=== PATIENT | female | born 1990 | race Caucasian/White ===

== ENCOUNTER 2016-08-08 21:22 | Emergency (ER) | payer BC ==
[2016-08-08] MEDS: NS 1,000 ML IV SCH ×2 (21:30→22:37)
[2016-08-08] MEDS ORDERED: SODIUM CHLORIDE 0.9% 3 ML FLUSH FLUSH PRN (21:30)
--- NOTE | 2016-08-08 21:35 | EDPRACDOC ---
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 STATES SHE TOOK THIS MEDICATION IN 2014 FOR WEIGHT LOSS AND DIDNT HAVE ANY PROBLEMS THEN. PER EMS THEY GAVE HER ADENOSINE 6, 12,12 WITHOUT CHANGE OF HEART RATE. PT STATES SHE FEELS SHAKY INSIDE. Symptoms Started: Reports: Suddenly, Drug-ingestion (ADIPEX FOR WEIGHT LOSS) Relevant History: Reports: None Heart Rate (bpm): 230 (INITIALLY WHEN EMS ARRIVED) Pulse is: Rapid Defibrillator Firing: No Worsens with: Reports: Nothing Associated signs & symptoms: Reports: Other (MILD SOB) Chest Pain Location: Reports: No Pain Pain Quality: Reports: None Pain Radiation: Reports: None <Javier Alfaro - Last Filed: 08/09/16 01:46> <Kenia Awan - Last Filed: 08/09/16 05:47> - General Information Stated Complaint: HEART PROBLEMS Time Seen by Provider: 08/08/16 21:27 Home Medications: Home Medications Aspirin (Enteric Coated) [Ecotrin] 162 mg PO .TODAY PRN 08/08/16 Phentermine HCl 15 mg PO DAILY 08/08/16 Ranitidine HCl [Zantac] 150 mg PO DAILY 08/08/16 Metoprolol Tartrate 25 mg PO BID #6 tablet 08/09/16 Allergies/Adverse Reactions: Allergies Allergy/AdvReac Type Severity Reaction Status Date / Time shellfish derived Allergy Anaphylaxis Verified 08/08/16 22:02 * ED Past Medical History - History Reviewed Yes Nurses notes reviewed and agree except as marked Travel Outside of [place] in the Last 3 Months?: No No Past Medical History: Yes Patient has no past medical history - Family Medical History Reports: Other (IRREGULAR HEART RATE - MOTHER) - Social Medical History ETOH: None Substance Abuse: None Lives With: Other Lives In: Home <Javier Alfaro - Last Filed: 08/09/16 01:46> EDM Review of Systems - Review of Systems ROS Negative Except as Marked: Yes All systems reviewed and were negative except as marked Constitutional: No Symptoms Reported. negative: Fever, Chills, Weakness, Fatigue, Loss of Appetite Eyes: No Symptoms Reported. negative: Redness, Blurred Vision, Double Vision, Discharge, Pain, Light Sensitive, Photophobia Ears: No Symptoms Reported. negative: Pain, Hearing Loss, Drainage, Ear Pulling Throat: No Symptoms Reported. negative: Pain, Swelling Nose: No Symptoms Reported. negative: Congestion, Bleeding, Discharge, Injection, Swelling, Deformity, Ecchymosis, Tender, Abrasion, Laceration Mouth: No Symptoms Reported. negative: Pain, Drooling Respiratory: Shortness of Breath. negative: Barky Cough, Brassy Cough, Cough, Hemoptysis, Wheezing Cardiovascular: Palpitations. negative: Chest Pain, Cyanosis, Edema, Orthopnea , PND, Syncope, Skin Mottling Gastrointestinal: No Symptoms Reported. negative: Pain, Constipation, Nausea, Vomiting, Diarrhea, Melena, Formula Intolerance Genitourinary: No Symptoms Reported. negative: Dysuria, Hematuria, Frequency, Discharge, Bleeding, Testicular Pain, Neurological: Weakness. negative: Dizziness, Gait Difficulty, Headache, Numbness, Seizure, Speech Difficulty Musculoskeletal: No Symptoms Reported. negative: Neck, Chestwall, Ribs, Back, Shoulder, Arm, Elbow, Forearm, Wrist, Hand, Pelvis, Hip, Femur, Knee, Leg, Ankle , Foot Integumentary: No Symptoms Reported. negative: Itching, Rash, Bruising, Wound Allergic/Immunologic: No Symptoms Reported. negative: Hives, Itching Hematologic: No Symptoms Reported. negative: Lymphadenopathy, Easy Bruising, Easy Bleeding Endocrine: No Symptoms Reported. negative: Weight Gain, Weight Loss Psychiatric: No Symptoms Reported. negative: Anxiety, Depression, Hallucinations, Insomnia, Suicidal <Javier Alfaro - Last Filed: 08/09/16 01:46> - Physical Exam Constitutional: Alert (Awake), Other (ANXIOUS) Oriented to: Time, Person, Place Last recorded Vital Signs: Oxygen Pulse Oxygen Saturation O2 Device Oxygen Flow Rate Fraction of Inspired Oxygen ( FIO2) - HEENT Head: Normal ( normocephalic) Eye Exam: Normal (PERRL, EOMI, Sclera white) Oropharynx: Normal (Pharynx:Moist without exudate,Gums-no swelling) Tympanic Membrane: Normal ENT EAC: Normal TMJ: Normal Nose: No Symptoms Reported (septum midline) Neck: Normal (FROM, trachea at midline) - Respiratory/Cardiovascular Respiratory: Normal - CTA (BBS clear to auscultation without adventitious sounds ) Cardiovascular: Tachycardia - GI Auscultation: Normal (NABS) Palpation: Normal (Soft,No rebound or guarding, non distended) Tenderness: Non tender Pearson's Sign: Negative - Bladder: Normal - Musculoskeletal Back: Normal (Non-Tender) Extremities: Normal (Normal tone, Pulses 2+ No cyanosis or edema, FROM) - Integumentary Skin: Normal, Warm, Dry Lymphatics: Normal (no adenopathy) - Neurologic Memory Impaired: Normal Motor Function: Normal (Normal tone, Pulses 2+ No cyanosis or edema, FROM) Cranial Nerve: Normal (CN II-X11 intact sensation, strength 5/5) Cerebellar: Normal Mood Description: Normal Perception: Normal <Javier Alfaro - Last Filed: 08/09/16 01:46> - Physical Exam Last recorded Vital Signs: Last Vital Signs Temp Pulse 90 08/09/16 02:45 Resp 18 08/09/16 01:36 BP 112/66 08/09/16 02:45 Pulse Ox 92 08/09/16 02:45 Oxygen Pulse Oxygen Saturation 92 O2 Device Room Air Oxygen Flow Rate Fraction of Inspired Oxygen ( FIO2) <Kenia Awan - Last Filed: 08/09/16 05:47> - Differential Diagnosis PSVT, Sinus tachycardia, WPW, Anxiety/Panic attack, Electrolyte disorder, Hyperthyroidism - Re-evaluation Re-evaluation 1 Re-evaluation Time: 00:10 (HEART RATE STILL ELEVATED PT STATES FEELING BETTER. ) Re-evaluation 2 Re-evaluation Time: 01:47 (HEART RATE 144 BEFORE THE SECOND DOSE OF CARDIZEM, 5 MINTUES AFTER SECOND BOLUS HEART RATE BOUNCING BETWEEN 86-104 STILL APPEARS TO BE IN AFIB. ) - Results 08/08/16 21:30 08/08/16 21:30 - EKG EKG #1 Initial EKG Time: 21:28 -: Yes EKG interpreted by me Rate: bpm: 191 [place]: Normal Rhythm: Other (SVT) Block: None Hypertrophy: None ST: Normal EKG #2 Initial EKG Time: 22:54 -: Yes EKG interpreted by Rate: bpm: 121 [place]: Normal Rhythm: Afib (WITH RVR) Block: None Hypertrophy: None ST: Normal Comments: AFTER LOPRESSOR 5MG EVERY 5 MINUTES - Diagnostic Imaging CXR Image interpreted by: Radiologist IMPRESSION: No active disease. <Javier Alfaro - Last Filed: 08/09/16 01:46> - Re-evaluation Re-evaluation 4 Re-evaluation Time: 05:44 (NO SYMPTOMS, HR 92 NSR) - Results 08/08/16 21:30 08/08/16 21:30 WBC 10.6 xk/uL (3.8-10.8) 08/08/16 21:30 RBC 4.91 xM/uL (4.20-5.40) 08/08/16 21:30 Hgb 14.3 g/dL (12.0-16.0) 08/08/16 21:30 Hct 40.9 % (36-47) 08/08/16 21: MCV 83 fL (81-99) 08/08/16 21: MCH 29.2 pg (27-32) 08/08/16 21: MCHC 35.0 g/dl (33-36) 08/08/16 21:30 RDW 12.9 % (11.5-14.5) 08/08/16 21: Plt Count 265 xk/uL (130-400) 08/08/16 21:30 MPV 9.4 fL (7.4-10.4) 08/08/16 21:30 Neut % (Auto) 48.2 % (45-76) 08/08/16 21: Lymph % (Auto) 43.3 % (17-44) 08/08/16 21:30 Citrus % (Auto) 6.6 % (3-10) 08/08/16 21:30 Eos % (Auto) 0.9 % (0-5) 08/08/16: Baso % (Auto) 1.0 % (0-2) 08/08/16 21:30 Absolute Neuts (auto) 5.09 xk/uL (1.7-8.2) 08/08/16: Absolute Lymphs (auto) 4.56 xk/uL (0.65-4.75) 08/08/16 21:30 PT 11.8 SEC (9.2-11.2) H 08/08/16 21:30 INR 1.1 08/08/16 21:30 D-Dimer Quant (PE/DVT) 340 ng/mL (<500) 08/08/16 21:30 Sodium 139 mEq/L (137-146) 08/08/16 21:30 Potassium 3.0 mEq/L (3.5-5.1) L 08/08/16 21:30 Chloride 103 mEq/L (98-107) 08/08/16 21:30 Carbon Dioxide 18 mMOL/L (22-33) L 08/08/16 21:30 Anion Gap 21 mEq/L (8-16) H 08/08/16 21:30 BUN 12 MG/DL (7-17) 08/08/16 21:30 Creatinine 0.70 MG/DL (0.52-1.04) 08/08/16 21:30 Estimated GFR (MDRD) > 60 mL/min (>=60) 08/08/16 21:30 Glucose 117 MG/DL (70-99) H 08/08/16 21:30 Calculated Osmolality 269 MOs/Kg (270-290) L 08/08/16 21:30 Calcium 9.6 MG/DL (8.4-10.2) 08/08/16 21:30 Total Bilirubin 0.7 MG/DL (0.2-1.3) 08/08/16 21:30 AST 31 IU/L (14-36) 08/08/16 21:30 ALT 41 IU/L (9-52) 08/08/16 21:30 Alkaline Phosphatase 64 IU/L (38-126) 08/08/16 21:30 Creatine Kinase 317 IU/L (30-134) H 08/08/16 21:30 CK-MB (CK-2) 0.4 ng/mL (0-4.5) 08/08/16:30 Myoglobin 27.1 ng/mL (0-101) 08/08/16 21:30 Troponin I < 0.01 ng/mL (<.04) 08/08/16 21:30 Total Protein 7.6 G/DL (6.3-8.2) 08/08/16 21:30 Albumin 4.6 G/DL (3.5-5.0) 08/08/16 21:30 TSH 2.27 uIU/mL (0.5-4.67) 08/08/16 21:30 Urine Color Pale yellow 08/08/16 22:10 Urine Clarity Sl cldy 08/08/16 22:10 Urine pH 6.0 (5.0-8.0) 08/08/16 22:10 Ur Specific [place] 1.005 (1.003-1.035) 08/08/16 22:10 Urine Protein Neg (NEG/TRACE) 08/08/16 22:10 Urine Glucose (UA) Neg (NEGATIVE) 08/08/16 22:10 Urine Ketones 2+ (NEGATIVE) H 08/08/16 22:10 Urine Occult Blood Neg (NEG/TRACE) 08/08/16 22:10 Urine Nitrite Neg (NEGATIVE) 08/08/16 22:10 Urine Bilirubin Neg (NEGATIVE) 08/08/16 22:10 Urine Urobilinogen <2.0 MG/DL (0-1) 08/08/16 22:10 Ur Leukocyte Esterase Trace (NEGATIVE) H 08/08/16 22:10 Urine RBC 0-2 (0-5) 08/08/16 22:10 Urine WBC 5-10 (0-5) H 08/08/16 22:10 Ur Epithelial Cells 2+ 08/08/16 22:10 Urine Bacteria Few (NEG/FEW) 08/08/16 22:10 Urine Mucus Occ (NEG/OCC) 08/08/16 22:10 Urine Test Neg (NEGATIVE) 08/08/16 22:10 Urine Opiates Screen Neg (NEGATIVE) 08/08/16 22:10 Ur Oxycodone Screen Neg (NEGATIVE) 08/08/16 22:10 Urine Methadone Screen Neg (NEGATIVE) 08/08/16 22:10 Ur Barbiturates Screen Neg (NEGATIVE) 08/08/16 22:10 Ur Tricyclics Screen Neg (NEGATIVE) 08/08/16 22:10 Ur Phencyclidine Scrn Neg (NEGATIVE) 08/08/16 22:10 Ur Amphetamines Screen Neg (NEGATIVE) 08/08/16 22:10 U Methamphetamines Scrn Neg (NEGATIVE) 08/08/16 22:10 Urine MDMA Screen Neg (NEGATIVE) 08/08/16 22:10 U Benzodiazepines Scrn Neg (NEGATIVE) 08/08/16 22:10 Urine Cocaine Screen Neg (NEGATIVE) 08/08/16 22:10 Ur THC Screen Neg (NEGATIVE) 08/08/16 22:10 Lab Results 01/11/17 01/11/17 01/11/17 22:10 22:10 22:10 WBC RBC Hgb Hct MCV MCH MCHC RDW Plt Count MPV Neut % (Auto) Lymph % (Auto) [place] % (Auto) Eos % (Auto) Baso % (Auto) Absolute Neuts (auto) Absolute Lymphs (auto) PT INR D-Dimer Quant (PE/DVT) Sodium Potassium Chloride Carbon Dioxide Anion Gap BUN Creatinine Estimated GFR (MDRD) Glucose Calculated Osmolality Calcium Total Bilirubin AST ALT Alkaline Phosphatase Creatine Kinase CK-MB (CK-2) Myoglobin Troponin I Total Protein Albumin TSH Urine Color Pale yellow Urine Clarity Sl cldy Urine pH 6.0 Ur Specific [place] 1.005 Urine Protein Neg Urine Glucose (UA) Neg Urine Ketones 2+ H Urine Occult Blood Neg Urine Nitrite Neg Urine Bilirubin Neg Urine Urobilinogen <2.0 Ur Leukocyte Esterase Trace H Urine RBC 0-2 Urine WBC 5-10 H Ur Epithelial Cells 2+ Urine Bacteria Few Urine Mucus Occ Urine Test Neg Urine Opiates Screen Neg Ur Oxycodone Screen Neg Urine Methadone Screen Neg Ur Barbiturates Screen Neg Ur Tricyclics Screen Neg Ur Phencyclidine Scrn Neg Ur Amphetamines Screen Neg U Methamphetamines Scrn Neg Urine MDMA Screen Neg U Benzodiazepines Scrn Neg Urine Cocaine Screen Neg Ur THC Screen Neg 08/08/16 08/08/16 08/08/16 21:30 21:30 21:30 WBC 10.6 RBC 4.91 Hgb 14.3 Hct 40.9 MCV 83 MCH 29.2 MCHC 35.0 RDW 12.9 Plt Count 265 MPV 9.4 Neut % (Auto) 48.2 Lymph % (Auto) 43.3 [place] % (Auto) 6.6 Eos % (Auto) 0.9 Baso % (Auto) 1.0 Absolute Neuts (auto) 5.09 Absolute Lymphs (auto) 4.56 PT 11.8 H INR 1.1 D-Dimer Quant (PE/DVT) 340 Sodium Potassium Chloride Carbon Dioxide Anion Gap BUN Creatinine Estimated GFR (MDRD) Glucose Calculated Osmolality Calcium Total Bilirubin AST ALT Alkaline Phosphatase Creatine Kinase CK-MB (CK-2) Myoglobin Troponin I Total Protein Albumin TSH Urine Color Urine Clarity Urine pH Ur Specific [place] Urine Protein Urine Glucose (UA) Urine Ketones Urine Occult Blood Urine Nitrite Urine Bilirubin Urine Urobilinogen Ur Leukocyte Esterase Urine RBC Urine WBC Ur Epithelial Cells Urine Bacteria Urine Mucus Urine Test Urine Opiates Screen Ur Oxycodone Screen Urine Methadone Screen Ur Barbiturates Screen Ur Tricyclics Screen Ur Phencyclidine Scrn Ur Amphetamines Screen U Methamphetamines Scrn Urine MDMA Screen U Benzodiazepines Scrn Urine Cocaine Screen Ur THC Screen 08/08/16 21:30 WBC RBC Hgb Hct MCV MCH MCHC RDW Plt Count MPV Neut % (Auto) Lymph % (Auto) [place] % (Auto) Eos % (Auto) Baso % (Auto) Absolute Neuts (auto) Absolute Lymphs (auto) PT INR D-Dimer Quant (PE/DVT) Sodium 139 Potassium 3.0 L Chloride 103 Carbon Dioxide 18 L Anion Gap 21 H BUN 12 Creatinine 0.70 Estimated GFR (MDRD) > 60 Glucose 117 H Calculated Osmolality 269 L Calcium 9.6 Total Bilirubin 0.7 AST 31 ALT 41 Alkaline Phosphatase 64 Creatine Kinase 317 H CK-MB (CK-2) 0.4 Myoglobin 27.1 Troponin I < 0.01 Total Protein 7.6 Albumin 4.6 TSH 2.27 Urine Color Urine Clarity Urine pH Ur Specific [place] Urine Protein Urine Glucose (UA) Urine Ketones Urine Occult Blood Urine Nitrite Urine Bilirubin Urine Urobilinogen Ur Leukocyte Esterase Urine RBC Urine WBC Ur Epithelial Cells Urine Bacteria Urine Mucus Urine Test Urine Opiates Screen Ur Oxycodone Screen Urine Methadone Screen Ur Barbiturates Screen Ur Tricyclics Screen Ur Phencyclidine Scrn Ur Amphetamines Screen U Methamphetamines Scrn Urine MDMA Screen U Benzodiazepines Scrn Urine Cocaine Screen Ur THC Screen <Kenia Awan N - Last Filed: 08/09/16 05:47> - Departure Education/Counseling Given To: Patient Education/Counseling Given Regarding: Diagnosis, Treatment, Prognosis, Follow Up <Javier Alfaro - Last Filed: 08/09/16 01:46> - Departure Disposition: Home <Kenia Awan - Last Filed: 08/09/16 05:47> - Departure Condition: Stable Final Diagnosis: Supraventricular tachycardia, Adverse drug reaction, Atrial fibrillation with rapid ventricular response Instructions: Supraventricular Tachycardia (ED), Adverse Drug Reaction (ED), Atrial Fibrillation (ED) Referrals: None,No Provider [NonStaff] - One Week Prescriptions: Metoprolol Tartrate 25 mg PO BID #6 tablet Forms: ED Discharge Instructions
[2016-08-08] MEDS ORDERED: METOPROLOL 5 MG/5 ML SDV IV STA (21:36)
[2016-08-08 21:38] LABS: AUTOMATED EOSINOPHIL 0.9 % (0-5); AUTOMATED LYMPH 43.3 % (17-44); AUTOMATED MONOCYTE 6.6 % (3-10); AUTOMATED NEUTROPHIL 48.2 % (45-76); MPV 9.4 fL (7.4-10.4)
[2016-08-08 21:39] VITALS: BMI 32.8
[2016-08-08] MEDS: METOPROLOL 5 MG/5 ML SDV IV ONE ×2 (21:44→21:49)
[2016-08-08 21:48] LABS: PT-INR 1.1
[2016-08-08 21:54] LABS: BLOOD UREA NITROGEN 12 MG/DL (7-17); CALCIUM 9.6 MG/DL (8.4-10.2); CALCULATED OSMOLALITY 269 MOs/Kg (270-290); CHLORIDE 103 mEq/L (98-107); CPK TOTAL WITH POSSIBLE MB 317 IU/L (30-134); GLUCOSE 117 MG/DL (70-99); SODIUM LEVEL 139 mEq/L (137-146); TOTAL PROTEIN 7.6 G/DL (6.3-8.2)
[2016-08-08] MEDS ORDERED: METOPROLOL 5 MG/5 ML SDV IV SCH (22:00)
[2016-08-08 22:10] LABS: CPKMB 0.4 ng/mL (0-4.5)
[2016-08-08 22:24] LABS: ALL NEG? YES; MDMA* NEG (NEGATIVE); METHAMPHETAMINES NEG (NEGATIVE); OXYCODONE NEG (NEGATIVE)
[2016-08-08 22:25] LABS: hTSH 2.27 uIU/mL (0.5-4.67)
[2016-08-08] MEDS ORDERED: LORAZEPAM 2 MG/ML VIAL IV ONE (22:26)
[2016-08-08 22:31] LABS: LEUKOCYTES/URINE TRACE (NEGATIVE); NITRITE/URINE NEG (NEGATIVE); RBC/URINE 0-2 (0-5); URINE OCCULT BLOOD NEG (NEG/TRACE)
[2016-08-08] MEDS ORDERED: DILTIAZEM 25 MG/5 ML VIAL IV ONE (22:59)
--- NOTE | 2016-08-08 23:26 | DIRPT ---
CLINICAL DATA: Initial evaluation for suspected respiratory distress. EXAM: PORTABLE CHEST 1 VIEW COMPARISON: None. FINDINGS: The cardiac and mediastinal silhouettes are within normal limits. The lungs are normally inflated. No airspace consolidation, pleural effusion, or pulmonary edema is identified. There is no pneumothorax. No acute osseous abnormality identified. IMPRESSION: No active disease. Electronically Signed By: Ignacio Salinas M.D. On: 08/08/2016 23:24
[2016-08-08] MEDS ORDERED: POTASSIUM CHLORIDE 10 MEQ TABLET PO ONE (23:30)
[2016-08-08] MEDS: NS 1,000 ML IV ONE (23:32)
[2016-08-08] MEDS ORDERED: POTASSIUM CHLORIDE 20 MEQ/15 ML ORAL SOLN PO ONE (23:48)
[2016-08-09] MEDS ORDERED: DILTIAZEM 25 MG/5 ML VIAL IV ONE (01:07)
[2016-08-09] MEDS ORDERED: NS 1,000 ML IV ONE ×2 (01:08→02:49)
[2016-08-09] MEDS ORDERED: Diltiazem HCl 100 MG in D5W 100 ML IV SCH (01:08)
[2016-08-09] MEDS: NS 1,000 ML IV ONE (02:14)
[2016-08-09] MEDS ORDERED: DILTIAZEM 30 MG TAB PO ONE (03:02)
[2016-08-09] MEDS ORDERED: SODIUM CHLORIDE 0.9% 3 ML FLUSH FLUSH SCH (06:00)
[2016-08-09 06:38] VITALS: BP 118/77; PULSE 88
== END 2016-08-09 05:55 | disposition home or self-care (01) ==
LOC: ED 21:22
DX: I47.1 Supraventricular tachycardia (principal); I48.91 Unspecified atrial fibrillation; T50.5X5A Adverse effect of appetite depressants, initial encounter
CPT/HCPCS: 36415; 71010; 80053; 80307; 81001; 81025; 82550; 82553; 83874; 84443; 84484; 85025; 85379; 85610; 87086; 93005; 96361; 96365; 96375; 96376; 99284; J2060; J3490; J7060